=== PATIENT | male | born 1965 | race Caucasian/White ===

== ENCOUNTER 2018-08-25 16:21 | Emergency (ER) | payer OTHER ==
[~2018-08-25] VITALS: Ht 182.8 cm; Wt 72.6 kg
[~2018-08-25 16:21] MED LIST: AMOXICILLIN500 M2 PO; ATENOLOL25 MG PO; REQUIP5 MG PO; VICODIN 5/500 505 MG PO; ZOFRAN4 MG PO; ZOLOFT100 MG PO
[2018-08-25 17:39] LABS: HEMATOCRIT 45.5 % (42.0-52.0); HEMOGLOBIN 16.3 g/dl (14.0-18.0); MEAN CELL VOLUME 86.2 fl (80.0-94.0); MEAN CORPUSCULAR HGB 30.9 pg (27.0-31.0); MEAN CORPUSCULAR HGB CONC 35.8 g/dl (33.0-37.0); MEAN PLATELET VOLUME 10.1 fl (9.6-12.3); PLATELET COUNT AUTOMATED 211 10*3/uL (130-400); RED BLOOD COUNT 5.28 10*6/uL (4.50-5.90); RED CELL DISTRI WIDTH 12.3 % (0-14.5); WHITE BLOOD COUNT 12.5 10*3/uL (4.8-10.8)
[2018-08-25 17:55] LABS: ALBUMIN 4.1 gm/dl (3.1-4.5); ALKALINE PHOSPHATASE 112 U/L (45-117); BUN 9 mg/dl (7-24); CHLORIDE 109 mmol/L (98-107); CREATININE 1.12 mg/dL (0.70-1.30); LIPASE 90 U/L (73-393); POTASSIUM 3.7 mmol/L (3.5-5.1); SGOT/AST 19 IU/L (3-35); SGPT/ALT 27 U/L (12-78); SODIUM 143 mmol/L (136-145); TOTAL PROTEIN 7.7 gm/dL (6.4-8.2)
[2018-08-25 18:00] LABS: PLATELET SUFFICIENCY NORMAL (NORMAL); TOTAL CELLS COUNTED 100 #CELLS
[2018-08-25 21:14] LABS: BILIRUBIN NEGATIVE (NEGATIVE); BLOOD 3+ (NEGATIVE); CLARITY SL CLOUDY (CLEAR); COLOR YELLOW (YELLOW); GLUCOSE NEGATIVE (NEGATIVE); KETONE 2+ (NEGATIVE); LEUKO ESTERASE TRACE (NEGATIVE); NITRITE NEGATIVE (NEGATIVE); PH 7.5 (5.0-9.0)
[2018-08-25 21:17] LABS: BACTERIA TRACE; EPITHELIAL CELLS 0-2
[2018-08-25] MEDS ORDERED: KETOROLAC10 MG PO (23:33)
== END 2018-08-25 23:00 | disposition home or self-care (01) ==
LOC: ED 16:21
PROVIDERS: Physician Assistant
DX: N13.2 Hydronephrosis with renal and ureteral calculous obstruction (principal); Z79.2 Long term (current) use of antibiotics; Z79.899 Other long term (current) drug therapy

== ENCOUNTER → 2018-09-23 | Outpatient (CLI) | payer OTHER ==
[~2018-09-23] MED LIST changes: +KETOROLAC10 MG PO
[2018-09-23 16:35] LABS: BASO % 0.5 % (0.0-1.0); EOS # 0.2 10*3/uL (0.0-0.4); EOS % 2.5 % (1.0-4.0); HEMATOCRIT 43.8 % (42.0-52.0); HEMOGLOBIN 14.7 g/dl (14.0-18.0); LYMPH # 1.5 10*3/uL (1.3-4.4); LYMPH % 24.7 % (27.0-41.0); MEAN CELL VOLUME 87.6 fl (80.0-94.0); MEAN CORPUSCULAR HGB 29.4 pg (27.0-31.0); MEAN CORPUSCULAR HGB CONC 33.6 g/dl (33.0-37.0); MEAN PLATELET VOLUME 9.9 fl (9.6-12.3); MONO # 0.4 10*3/uL (0.1-1.0); MONO % 6.5 % (3.0-9.0); NEUT % 65.1 % (47.0-73.0); PLATELET COUNT AUTOMATED 221 10*3/uL (130-400); RED CELL DISTRI WIDTH 12.2 % (0-14.5); WHITE BLOOD COUNT 6.1 10*3/uL (4.8-10.8)
[2018-09-23 16:37] LABS: BILIRUBIN NEGATIVE (NEGATIVE); BLOOD 3+ (NEGATIVE); CLARITY CLEAR (CLEAR); COLOR YELLOW (YELLOW); GLUCOSE NEGATIVE (NEGATIVE); KETONE NEGATIVE (NEGATIVE); LEUKO ESTERASE TRACE (NEGATIVE); NITRITE NEGATIVE (NEGATIVE); PH 6.5 (5.0-9.0); SPECIFIC GRAVITY <= 1.005 (1.005-1.030); UROBILINOGEN 0.2 E.U./dl (0.2-1.0)
[2018-09-23 16:43] LABS: RBC TNTC rbc/hpf (0-2)
[2018-09-23 17:03] LABS: ALBUMIN 3.9 gm/dl (3.1-4.5); ALKALINE PHOSPHATASE 110 U/L (45-117); BUN 10 mg/dl (7-24); CHLORIDE 107 mmol/L (98-107); CREATININE 0.87 mg/dL (0.70-1.30); POTASSIUM 3.8 mmol/L (3.5-5.1); SGOT/AST 17 IU/L (3-35); SGPT/ALT 23 U/L (12-78); SODIUM 142 mmol/L (136-145); THYROXINE (T4) TOTAL 8.8 ug/dl (4.5-12.1); TOTAL PROTEIN 7.9 gm/dL (6.4-8.2)
[2018-09-30 18:03] LABS: CALCIUM OXALATE 3.41 ratio (0.00-6.00); CALCIUM, URINE 4.1 mg/dL (Not Estab.); CALCIUM, URINE 68.7 mg/24 hr (100.0-300.0); CITRIC ACID (CITRATE) 188 mg/24 hr (320-1240); CREATININE, URINE 1169.2 mg/24 hr (1000.0-2000.0); CREATININE, URINE 69.8 mg/dL (Not Estab.); MAGNESIUM, URINE 2.9 mg/dL (Not Estab.); MONOSODIUM URATE 0.58 ratio (0.00-4.00); OSMOLALITY, URINE 263 (300-900); SODIUM, URINE 26 mmol/L (Not Estab.); SODIUM, URINE 44 (58-337); STRUVITE 0.01 ratio (0.00-1.00); URIC ACID 1.72 ratio (0.00-1.20); pH 24 HR URINE 5.7 (.)
== END | disposition home or self-care (01) ==
LOC: LAB 15:05
PROVIDERS: Nurse Practitioner Family
DX: Z12.5 Encounter for screening for malignant neoplasm of prostate (principal); N20.0 Calculus of kidney; I10 Essential (primary) hypertension

== ENCOUNTER → 2018-10-20 | Outpatient (CLI) | payer OTHER | END | disposition home or self-care (01) | LOC: CT 09:41 | DX: N13.39 Other hydronephrosis (principal); N20.1 Calculus of ureter ==

== ENCOUNTER 2019-03-05 07:05 | Emergency (ER) | payer OTHER ==
[~2019-03-05] VITALS: Ht 180.3 cm; Wt 81.6 kg
== END 2019-03-05 08:20 | disposition home or self-care (01) ==
LOC: ED 07:05
DX: S93.402A Sprain of unspecified ligament of left ankle, initial encounter (principal); S93.602A Unspecified sprain of left foot, initial encounter; Z79.899 Other long term (current) drug therapy; W19.XXXA Unspecified fall, initial encounter; Y93.89 Activity, other specified; Y92.89 Other specified places as the place of occurrence of the external cause; Y99.8 Other external cause status

== ENCOUNTER → 2019-12-15 | Outpatient (CLI) | payer OTHER ==
[2019-12-14 11:11] LABS: BASO % 0.5 % (0.0-1.0); EOS # 0.1 10*3/uL (0.0-0.4); HEMATOCRIT 46.2 % (42.0-52.0); LYMPH # 1.8 10*3/uL (1.3-4.4); LYMPH % 29.2 % (27.0-41.0); MEAN CELL VOLUME 88.7 fl (80.0-94.0); MEAN CORPUSCULAR HGB 29.9 pg (27.0-31.0); MEAN CORPUSCULAR HGB CONC 33.8 g/dl (33.0-37.0); MEAN PLATELET VOLUME 10.1 fl (9.6-12.3); MONO # 0.5 10*3/uL (0.1-1.0); MONO % 8.5 % (3.0-9.0); NEUT # 3.6 10*3/uL (2.3-7.9); NEUT % 60.3 % (47.0-73.0); PLATELET COUNT AUTOMATED 223 10*3/uL (130-400); RED BLOOD COUNT 5.21 10*6/uL (4.50-5.90); RED CELL DISTRI WIDTH 12.3 % (0-14.5)
[2019-12-14 11:32] LABS: BILIRUBIN NEGATIVE; CLARITY CLOUDY (CLEAR); COLOR YELLOW (YELLOW); GLUCOSE NEGATIVE
[2019-12-14 11:33] LABS: BLOOD 3+ (NEGATIVE); KETONE NEGATIVE; LEUKO ESTERASE 1+ (NEGATIVE); NITRITE NEGATIVE (NEGATIVE)
[2019-12-14 11:39] LABS: ALKALINE PHOSPHATASE 102 U/L (45-117); BUN 13 mg/dl (7-24); CHLORIDE 109 mmol/L (98-107); CREATININE 1.06 mg/dL (0.70-1.30); POTASSIUM 4.5 mmol/L (3.5-5.1); SGOT/AST 21 IU/L (3-35); SGPT/ALT 45 U/L (12-78); SODIUM 141 mmol/L (136-145); T3 UPTAKE 28 % (31-39); THYROXINE (T4) TOTAL 7.5 ug/dl (4.5-12.1); TOTAL PROTEIN 8.1 gm/dL (6.4-8.2)
[2019-12-14 12:20] LABS: RBC TNTC rbc/hpf (0-2)
[2019-12-14 12:21] LABS: BACTERIA 2+
== END | disposition home or self-care (01) ==
LOC: LAB 12-14 10:40
PROVIDERS: ATTEND Urology
DX: N20.0 Calculus of kidney (principal); E83.50 Unspecified disorder of calcium metabolism; R31.9 Hematuria, unspecified

== ENCOUNTER → 2019-12-21 | Outpatient (CLI) | payer OTHER | END | disposition home or self-care (01) | LOC: US 17:00 | PROVIDERS: ATTEND Urology | DX: N28.1 Cyst of kidney, acquired (principal) ==

== ENCOUNTER → 2022-07-24 | Outpatient (CLI) | payer OTHER | END | disposition home or self-care (01) | LOC: RAD 16:15 | PROVIDERS: ATTEND Nurse Practitioner Family | DX: J06.9 Acute upper respiratory infection, unspecified (principal) ==

== ENCOUNTER → 2022-09-29 | Outpatient (CLI) | payer OTHER ==
[2022-09-29 09:19] LABS: BASO % 0.6 % (0.0-1.0); EOS # 0.1 10*3/uL (0.0-0.4); EOS % 1.1 % (1.0-4.0); HEMATOCRIT 47.7 % (42.0-52.0); LYMPH # 1.6 10*3/uL (1.3-4.4); MEAN CELL VOLUME 86.1 fl (80.0-94.0); MEAN CORPUSCULAR HGB 29.2 pg (27.0-31.0); MEAN PLATELET VOLUME 9.8 fl (9.6-12.3); MONO # 0.4 10*3/uL (0.1-1.0); MONO % 7.7 % (3.0-9.0); NEUT # 3.2 10*3/uL (2.3-7.9); NEUT % 60.4 % (47.0-73.0); PLATELET COUNT AUTOMATED 233 10*3/uL (130-400); RED BLOOD COUNT 5.54 10*6/uL (4.50-5.90); RED CELL DISTRI WIDTH 12.9 % (0-14.5); WHITE BLOOD COUNT 5.3 10*3/uL (4.8-10.8)
[2022-09-29 09:31] LABS: BILIRUBIN Negative (Negative); BLOOD Trace-Lysed (Negative); CLARITY Clear (Clear); COLOR Yellow (Yellow); GLUCOSE Negative (Negative); KETONE Negative (Negative); LEUKO ESTERASE Trace (Negative); NITRITE Negative (Negative); PH 5.5 (4.5-8.0)
[2022-09-29 09:58] LABS: EPITHELIAL CELLS 0-2
[2022-09-29 09:59] LABS: BACTERIA TRACE
[2022-09-29 10:16] LABS: ALKALINE PHOSPHATASE 111 U/L (46-116); BUN 9 mg/dl (9-23); CHLORIDE 107 mmol/L (98-107); POTASSIUM 3.9 mmol/L (3.4-5.1); SGPT/ALT 19 U/L (10-49); TOTAL PROTEIN 7.4 gm/dL (6.0-8.0)
== END | disposition home or self-care (01) ==
LOC: LAB 00:11 → CT 09:00
PROVIDERS: ATTEND Urology
DX: Z12.5 Encounter for screening for malignant neoplasm of prostate (principal); N20.0 Calculus of kidney; K76.0 Fatty (change of) liver, not elsewhere classified; D40.0 Neoplasm of uncertain behavior of prostate; R53.83 Other fatigue; R31.9 Hematuria, unspecified

== ENCOUNTER 2022-10-17 00:12 | Emergency (ER) | payer OTHER ==
[~2022-10-17] VITALS: Ht 180.3 cm
[2022-10-17] MEDS ORDERED: GOOD SENSE ASP325 MG PO (00:36)
[2022-10-17] MEDS ORDERED: POTASSIUM CITR10 ME1 PO (00:37)
[2022-10-17] MEDS ORDERED: LEVOTHYROXINE50 MCG PO (00:37)
[2022-10-17] MEDS ORDERED: SIMVASTATIN40 MG PO (00:40)
[2022-10-17] MEDS ORDERED: TAMSULOSIN HCL0.4 MG PO (00:40)
[2022-10-17 01:34] LABS: BASO # 0.1 10*3/uL (0.0-0.1); BASO % 0.5 % (0.0-1.0); EOS % 0.4 % (1.0-4.0); HEMATOCRIT 44.6 % (42.0-52.0); LYMPH # 1.4 10*3/uL (1.3-4.4); LYMPH % 13.9 % (27.0-41.0); MEAN CELL VOLUME 85.4 fl (80.0-94.0); MEAN CORPUSCULAR HGB 29.7 pg (27.0-31.0); MEAN CORPUSCULAR HGB CONC 34.8 g/dl (33.0-37.0); MEAN PLATELET VOLUME 9.7 fl (9.6-12.3); MONO # 0.6 10*3/uL (0.1-1.0); NEUT # 7.9 10*3/uL (2.3-7.9); NEUT % 78.8 % (47.0-73.0); PLATELET COUNT AUTOMATED 229 10*3/uL (130-400); RED BLOOD COUNT 5.22 10*6/uL (4.50-5.90); RED CELL DISTRI WIDTH 13.2 % (0-14.5)
[2022-10-17 01:51] LABS: ALKALINE PHOSPHATASE 118 U/L (46-116); BUN 10 mg/dl (9-23); CHLORIDE 110 mmol/L (98-107); SGPT/ALT 28 U/L (10-49); TOTAL PROTEIN 7.4 gm/dL (6.0-8.0)
[2022-10-17 06:27] LABS: BILIRUBIN Negative (Negative); BLOOD 3+ (Negative); CLARITY Clear (Clear); COLOR Yellow (Yellow); GLUCOSE Negative (Negative); KETONE Negative (Negative); LEUKO ESTERASE Trace (Negative); NITRITE Negative (Negative); PH 5.5 (4.5-8.0); SPECIFIC GRAVITY 1.015 (1.001-1.030)
[2022-10-17 06:58] LABS: BACTERIA 1+; RBC TNTC rbc/hpf (0-2)
== END 2022-10-17 07:14 | disposition home or self-care (01) ==
LOC: ED 00:12
PROVIDERS: Emergency Medicine
DX: N20.0 Calculus of kidney (principal); E78.00 Pure hypercholesterolemia, unspecified; E03.9 Hypothyroidism, unspecified; Z87.442 Personal history of urinary calculi; Z79.899 Other long term (current) drug therapy; Z79.82 Long term (current) use of aspirin

== ENCOUNTER 2022-11-23 18:44 | Emergency (ER) | payer OTHER ==
[~2022-11-23] VITALS: Ht 180.3 cm; Wt 86.2 kg
[~2022-11-23 18:44] MED LIST changes: +GOOD SENSE ASP325 MG PO; +LEVOTHYROXINE50 MCG PO; +POTASSIUM CITR10 ME1 PO; +SIMVASTATIN40 MG PO; +TAMSULOSIN HCL0.4 MG PO
== END 2022-11-23 20:38 | disposition home or self-care (01) ==
LOC: ED 18:44
DX: T63.441A Toxic effect of venom of bees, accidental (unintentional), initial encounter (principal); Z79.899 Other long term (current) drug therapy; Z79.82 Long term (current) use of aspirin; Y92.89 Other specified places as the place of occurrence of the external cause

== ENCOUNTER 2024-04-15 00:51 | Emergency (ER) | payer OTHER ==
[~2024-04-15] VITALS: Ht 180.3 cm; Wt 84.8 kg
[2024-04-15] MEDS ORDERED: DEXAMETHASONE 4 MG TAB PO ONE (02:20)
[2024-04-15] MEDS ORDERED: Acetaminophen/Oxycodone 5 MG/325 MG TABLET PO ONE (02:20)
[2024-04-15 02:42] LABS: BASO % 0.3 % (0.0-1.0); EOS % 0.1 % (1.0-4.0); HEMATOCRIT 47.7 % (42.0-52.0); MEAN CELL VOLUME 86.6 fl (80.0-94.0); MEAN CORPUSCULAR HGB 29.9 pg (27.0-31.0); MEAN CORPUSCULAR HGB CONC 34.6 g/dl (33.0-37.0); MEAN PLATELET VOLUME 9.3 fl (9.6-12.3); MONO # 0.5 10*3/uL (0.1-1.0); MONO % 4.3 % (3.0-9.0); NEUT # 9.8 10*3/uL (2.3-7.9); NEUT % 84.1 % (47.0-73.0); PLATELET COUNT AUTOMATED 278 10*3/uL (130-400); RED BLOOD COUNT 5.51 10*6/uL (4.50-5.90); RED CELL DISTRI WIDTH 12.5 % (0-14.5); WHITE BLOOD COUNT 11.6 10*3/uL (4.8-10.8)
[2024-04-15 03:01] LABS: ALKALINE PHOSPHATASE 128 U/L (46-116); BUN 13 mg/dl (9-23); CHLORIDE 107 mmol/L (98-107); POTASSIUM 4.2 mmol/L (3.4-5.1); SGPT/ALT 17 U/L (5-49); TOTAL PROTEIN 8.2 gm/dL (6.0-8.0)
[2024-04-15] MEDS ORDERED: SODIUM CHLORIDE 0.9% 1,000 ML IV ONE (03:15)
[2024-04-15] MEDS ORDERED: Ceftriaxone Sodium 1 GM/10 ML SYR IV ONE (03:15)
[2024-04-15] MEDS ORDERED: Dexamethasone Sodium Phospha 20 MG/5 ML VIAL IV ONE (03:30)
[2024-04-15] MEDS ORDERED: NEO/POLYMYX B SULF/DEXAMETH 200 DRP BOT OT ONE (03:40)
== END 2024-04-15 05:51 | disposition home or self-care (01) ==
LOC: ED 00:51
PROVIDERS: Nurse Practitioner
DX: H66.92 Otitis media, unspecified, left ear (principal); E87.20 Acidosis, unspecified; R51.9 Headache, unspecified; I10 Essential (primary) hypertension; R68.84 Jaw pain; Z98.890 Other specified postprocedural states

== ENCOUNTER 2024-10-27 02:36 | Emergency (ER) | payer OTHER ==
[~2024-10-27] VITALS: Ht 177.8 cm; Wt 83.9 kg
[2024-10-27] MEDS ORDERED: Tetracaine Hydrochloride 0.5% 4 ML BOT OPH ONE (03:45)
[2024-10-27] MEDS ORDERED: LISSAMINE GREEN 1.5 MG STRIP OP ONE (03:50)
== END 2024-10-27 05:48 | disposition home or self-care (01) ==
LOC: ED 02:36
DX: H43.392 Other vitreous opacities, left eye (principal); Z79.899 Other long term (current) drug therapy; Z79.82 Long term (current) use of aspirin